=== PATIENT | female | born 1960 | race Caucasian/White ===

== ENCOUNTER → 2018-01-29 11:58 | Outpatient (CLI) | payer OTHER, SELFPAY ==
--- NOTE | 2018-01-29 12:04 | RAD_ITS ---
STUDY: X-RAY - LEFT FOOT CLINICAL: Pain and discoloration of the distal great toe, injury. TECHNIQUE: 3 view(s) of the foot. COMPARISON: None. FINDINGS: There are small posterior and plantar calcaneal enthesophytes. Normal visualized subtalar, talonavicular, calcaneocuboid, tarsal and tarsometatarsal articulations. Normal metatarsi. Normal metatarsophalangeal joint of the great toe. Normal tibial and fibular sesamoid bones. Normal interphalangeal joint of the great toe. There is a nondisplaced fracture of the distal phalanx of the great toe. Normal second through fifth metatarsophalangeal joints. There is a bone island in the fourth proximal phalanx. There are hammertoe deformities of the third through fifth digits. There is soft tissue swelling of the great toe. RAD/Foot min 3 Views IMPRESSION: Nondisplaced fracture of the distal phalanx of the great toe. Electronically Signed: Chin Nevarez MD at 12:40 EDT Tel , Service support ,
== END ==
PROVIDERS: Visit Provider Physician Assistant Surgical
DX: S92.425A Nondisplaced fracture of distal phalanx of left great toe, initial encounter for closed fracture (principal); X58.XXXA Exposure to other specified factors, initial encounter
CPT/HCPCS: 73630

== ENCOUNTER → 2018-03-07 15:06 | Outpatient (CLI) | payer OTHER, SELFPAY ==
--- NOTE | 2018-03-07 15:09 | RAD_ITS ---
STUDY: X-RAY - LEFT FOOT CLINICAL: Female, 58 years old. Left great toe fracture. TECHNIQUE: 3 view(s) of the foot. COMPARISON: 01/29/2018 FINDINGS: There is a small plantar calcaneal spur. There is mild enthesopathic change at the calcaneal tendon insertion. Nonuniform joint space narrowing with spur formation is noted within the tarsometatarsal joints. Normal metatarsi. Mild nonuniform joint space narrowing of the first metatarsophalangeal joint. Normal tibial and fibular sesamoid bones. Normal interphalangeal joint of the great toe. No there has been slight interval sclerotic change along the comminuted fracture of the distal phalanx of the great toe. Fracture clefts are still visualized. Normal second through fifth metatarsophalangeal joints. Normal interphalangeal joints and phalanges of the lesser toes. The soft tissue structures are unremarkable. RAD/Foot min 3 Views IMPRESSION: 1. Interval healing of a comminuted fracture of the distal phalanx of the great toe with residual fracture lines noted. 2. Multifocal osteoarthritic change Electronically Signed: Sabas Patterson MD at 0:57 EDT Tel , Service support ,
== END ==
PROVIDERS: Visit Provider Physician Assistant Surgical
DX: S92.425A Nondisplaced fracture of distal phalanx of left great toe, initial encounter for closed fracture (principal); S90.112A Contusion of left great toe without damage to nail, initial encounter
CPT/HCPCS: 73630

== ENCOUNTER → 2018-04-05 07:50 | Outpatient (CLI) | payer OTHER, SELFPAY | PROVIDERS: Visit Provider Physician Assistant Surgical | DX: S92.425A Nondisplaced fracture of distal phalanx of left great toe, initial encounter for closed fracture (principal) | CPT/HCPCS: 73630 ==